=== PATIENT | male | born 1965 | race Caucasian/White ===

== ENCOUNTER 2016-09-20 15:19 | Emergency (ER) | payer SELFPAY ==
[~2016-09-20] VITALS: Ht 175.3 cm; Wt 80.0 kg
[2016-09-20] MEDS ORDERED: SODIUM CHLORIDE 0.9% 1,000 ML IV ONE (15:29)
[2016-09-20] MEDS ORDERED: ETOMIDATE 2MG/ML 10ML VIAL IV ONE (15:30)
[2016-09-20] MEDS ORDERED: PROPOFOL 10MG/ML 100ML 100 ML IV ONE (15:30)
[2016-09-20] MEDS ORDERED: MANNITOL 12.5G (25%) VIAL 50ML IV ONE (15:45)
[2016-09-20] MEDS ORDERED: HYDRALAZINE 20MG/ML VIAL IV ONE (15:45)
[2016-09-20] MEDS ORDERED: DEXAMETHASONE 10MG/ML 1ML VIAL IV ONE (15:45)
[2016-09-20] MEDS ORDERED: NIMODIPINE 30MG CAPSULE NG ONE (15:45)
[2016-09-20] MEDS ORDERED: PHENYTOIN SODIUM 500 MG in SODIUM CHLORIDE 0.9% 50 ML IV ONE (15:45)
[2016-09-20] MEDS ORDERED: HYDRALAZINE 20MG/ML VIAL ONE (15:51)
[2016-09-20 16:02] LABS: BG BASE EXCESS -1.7 mmol/L (-2.0-2.0); BG CARBOXYHEMOGLOBIN 0.6 % (0.5-1.5); BG DEOXYHEMOGLOBIN 0.3 % (0.0-5.0); BG FRACTION INSPIRED OXYGEN 100; BG METHEMOGLOBIN 0.3 % (0.0-1.5); BG OXYGEN SATURATION 99.7 % (92.0-98.5); BG OXYHEMOGLOBIN 98.8 % (94.0-97.0); BG PCO2 30.3 mmHg (35.0-45.0); BG PH 7.458 (7.350-7.450); BG PO2 293.2 mmHg (75.0-100.0); BG SAMPLE SITE RIGHT BRACHIAL; BG TIDAL VOLUME(mL) 550 mL; BG TOTAL HEMOGLOBIN 15.3 g/dL (12.0-18.0); BG VENT MODE VENT - A/C; BG VENT RATE 20 set
[2016-09-20] MEDS ORDERED: LEVETIRACETAM 500MG PREMIX 100 ML IV ONE (16:15)
[2016-09-20] MEDS ORDERED: NICARDIPINE 40MG/200ML PREMIX 200 ML IV PRN (16:15)
[2016-09-20 16:18] LABS: BASOPHILS % 0.3 % (0.0-2.0); EOSINOPHILS % 0.2 % (0.0-5.0); HEMATOCRIT. 41.5 % (42.0-52.0); HEMOGLOBIN. 14.6 g/dL (14.0-18.0); LYMPHOCYTES % 25.5 % (20.0-50.0); MEAN CORPUSCULAR HEMOGLOBIN 31.8 pg (28.0-32.0); MEAN CORPUSCULAR VOLUME 90.3 fL (80.0-94.0); MONOCYTES % 5.6 % (2.0-8.0); NEUTROPHILS % 68.4 % (40.0-76.0); PLATELET 196 x1000/uL (130-400); RED CELL DISTRIBUTION WIDTH 12.7 % (11.6-14.6)
[2016-09-20 16:25] LABS: CHLORIDE 107 mEq/L (98-107)
[2016-09-20 16:30] LABS: CARBON DIOXIDE 22 mEq/L (21-32); ETHANOL BLOOD < 10 mg/dL; PHENYTOIN 0.7 ug/mL (10-20)
[2016-09-20 16:33] LABS: CREATINE KINASE 212 IU/L (39-308); TROPONIN I < 0.02 ng/mL (0.00-0.04)
[2016-09-20 16:40] LABS: CARBAMAZEPINE < 0.5 ug/mL (4-12); PHENOBARBITAL < 2.1 ug/mL (15.0-40.0); VALPROIC ACID < 3.0 ug/mL (50-100)
[2016-09-20] MEDS ORDERED: NICARDIPINE 40MG/200ML PREMIX 200 ML IV SCH (16:45)
[2016-09-20 17:04] VITALS: BP 151/73
[2016-09-20 18:59] LABS: CLARITY URINE CLEAR (CLEAR); COLOR URINE YELLOW (YELLOW); GLUCOSE URINE TRACE (NEGATIVE); KETONES URINE 1+ (NEGATIVE); LEUKOCYTE ESTERASE URINE NEGATIVE (NEGATIVE); NITRITE URINE NEGATIVE (NEGATIVE); OCCULT BLOOD URINE NEGATIVE (NEGATIVE); PH URINE 6.5 (4.5-8.0); PROTEIN URINE 1+ (NEGATIVE); SPECIFIC GRAVITY URINE 1.017 (1.005-1.030); UROBILINOGEN URINE 0.2 E.U./dL (0.2-1.0)
[2016-09-20 19:09] LABS: *AMPHETAMINES SCREEN URINE NEGATIVE (NEGATIVE); *BARBITURATES SCREEN URINE NEGATIVE (NEGATIVE); *BENZODIAZEPINES SCREEN URINE NEGATIVE (NEGATIVE); *COCAINE SCREEN URINE NEGATIVE (NEGATIVE); CANNABINOID URINE SCREEN NEGATIVE (NEGATIVE); METHADONE URINE SCREEN NEGATIVE (NEGATIVE); OPIATES URINE SCREEN NEGATIVE (NEGATIVE); PHENCYCLIDINE URINE SCREEN NEGATIVE (NEGATIVE)
== END 2016-09-20 17:43 | disposition short-term general hospital (02) ==
LOC: ER 15:26
DX: I60.9 Nontraumatic subarachnoid hemorrhage, unspecified (principal); J96.90 Respiratory failure, unspecified, unspecified whether with hypoxia or hypercapnia
CPT/HCPCS: 31500; 36415; 36600; 51702; 70450; 71010; 80053; 80156; 80165; 80184; 80185; 80305; 81001; 82375; 82550; 82805; 83605; 83880; 84443; 84484; 85025; 94002; 96361; 96365; 96375; 99291; G0482; J0360; J1100; J1165; J1953; J2150; J2704; J3490; Z7610; 99285; J7030

== ENCOUNTER 2016-10-23 16:37 | Inpatient (IN) | payer MEDICARE ==
[~2016-10-23] VITALS: Ht 165.1 cm; Wt 66.7 kg
[~2016-10-23 16:37] MED LIST: IOHEXOL-350 100 ML BOTTLE ONE; SODIUM CHLORIDE 0.9% 10ML VIAL ONE
[2016-10-23] MEDS ORDERED: SODIUM CHLORIDE 0.9% 1,000 ML IV ONE ×2 (18:21→19:34)
[2016-10-23 19:05] LABS: BASOPHILS % 0.5 % (0.0-2.0); EOSINOPHILS % 2.7 % (0.0-5.0); HEMATOCRIT. 38.4 % (42.0-52.0); HEMOGLOBIN. 13.1 g/dL (14.0-18.0); MEAN CORPUSCULAR HEMOGLOBIN 32.2 pg (28.0-32.0); MEAN CORPUSCULAR VOLUME 94.6 fL (80.0-94.0); MEAN PLATELET VOLUME 9.6 fl (7.4-10.4); MONOCYTES % 7.1 % (2.0-8.0); NEUTROPHILS % 75.7 % (40.0-76.0); PLATELET 188 x1000/uL (130-400); RED BLOOD CELL COUNT 4.06 mill/uL (4.7-6.1); RED CELL DISTRIBUTION WIDTH 14.9 % (11.6-14.6)
[2016-10-23 19:13] LABS: CHLORIDE 105 mEq/L (98-107)
[2016-10-23 19:16] LABS: INR 1.1; PARTIAL THROMBOPLASTIN TIME 26.3 sec (23.4-31.0); PROTHROMBIN TIME 11.4 sec (9.4-11.6)
[2016-10-23 19:17] LABS: CARBON DIOXIDE 30 mEq/L (21-32)
[2016-10-23 19:25] LABS: TROPONIN I < 0.02 ng/mL (0.00-0.04)
[2016-10-24] MEDS ORDERED: LEVETIRACETAM 500MG PREMIX 100 ML IV ONE (01:00)
[2016-10-24] MEDS ORDERED: IPRATROPIUM/ALBUTEROL 0.5-3(2.5)MG/3ML NEB HHN SCH (16:30)
[2016-10-24] MEDS ORDERED: ACETAMINOPHEN 650MG SUPP ONE (18:24)
[2016-10-24] MEDS ORDERED: ACETAMINOPHEN 650MG SUPP PR NR (18:26)
[2016-10-24] MEDS ORDERED: PIPERACILLIN/TAZ 3.375G PREMIX 50 ML IV NR (18:26)
[2016-10-24] MEDS ORDERED: LEVETIRACETAM 500MG PREMIX 100 ML IV SCH (21:32)
[2016-10-24 22:37] VITALS: BP 113/75
[2016-10-24] MEDS ORDERED: DEXTROSE 50% WATER 50ML SYRINGE IV PRN (23:45)
[2016-10-25] VITALS (7 sets, daily range): BP systolic 111–127; BP diastolic 72–87
[2016-10-25] MEDS ORDERED: MORPHINE SULFATE 2 MG/ML CPJ (NOT FOR IM USE) IV PRN (01:00)
[2016-10-25] MEDS ORDERED: LORAZEPAM 2MG/ML CPJ IV PRN (01:00)
[2016-10-25] MEDS ORDERED: IPRATROPIUM/ALBUTEROL 0.5-3(2.5)MG/3ML NEB HHN PRN (01:15)
[2016-10-25] MEDS: IPRATROPIUM/ALBUTEROL 0.5-3(2.5)MG/3ML NEB HHN SCH ×4 (04:43→20:58)
[2016-10-25] MEDS: BLOOD SUGAR DIAGNOSTIC STRIP TEST SCH ×3 (07:10→12:30)
[2016-10-25] MEDS: INSULIN LISPRO 100 UNITS/ML SUBCUT SCH ×3 (07:40→12:31)
[2016-10-25] MEDS ORDERED: SENNOSIDES/DOCUSATE SOD 8.6/50MG TABLET GT PRN (11:45)
[2016-10-25] MEDS ORDERED: MORPHINE SULFATE 10MG/5ML ORAL SOLN UDC PO PRN ×2 (11:45→16:00)
[2016-10-25] MEDS ORDERED: LORAZEPAM 1MG TABLET PO PRN (11:45)
[2016-10-25] MEDS ORDERED: DOCUSATE SODIUM 100MG CAPSULE GT SCH (17:00)
[2016-10-26] VITALS: BP 119/81
[2016-10-26] MEDS: IPRATROPIUM/ALBUTEROL 0.5-3(2.5)MG/3ML NEB HHN SCH ×7 (00:46→23:55)
[2016-10-26 04:00] VITALS: BP 115/80
[2016-10-26 08:00] VITALS: BP 116/73
[2016-10-26] MEDS: BLOOD SUGAR DIAGNOSTIC STRIP TEST SCH ×4 (08:00→21:00)
[2016-10-26] MEDS: INSULIN LISPRO 100 UNITS/ML SUBCUT SCH ×4 (08:00→21:00)
[2016-10-26] MEDS: DOCUSATE SODIUM SUGAR FREE 100MG/10ML UDC GT SCH ×2 (08:52→17:00)
[2016-10-26] MEDS ORDERED: ACETAMINOPHEN 650MG SUPP PR PRN (10:45)
[2016-10-26 12:00] VITALS: BP 111/76
[2016-10-26 16:00] VITALS: BP 115/76
[2016-10-26 20:00] VITALS: BP 104/71
[2016-10-27] VITALS: BP 101/73
[2016-10-27] MEDS: IPRATROPIUM/ALBUTEROL 0.5-3(2.5)MG/3ML NEB HHN SCH ×6 (03:59→23:58)
[2016-10-27 04:00] VITALS: BP 108/72
[2016-10-27] MEDS: INSULIN LISPRO 100 UNITS/ML SUBCUT SCH ×4 (07:01→21:00)
[2016-10-27] MEDS: BLOOD SUGAR DIAGNOSTIC STRIP TEST SCH ×4 (07:01→21:00)
[2016-10-27] MEDS ORDERED: MORPHINE SULFATE 4 MG/ML CPJ (NOT FOR IM USE) IV PRN (07:45)
[2016-10-27 08:00] VITALS: BP 113/75
[2016-10-27] MEDS: DOCUSATE SODIUM SUGAR FREE 100MG/10ML UDC GT SCH ×2 (09:00→17:00)
[2016-10-27 12:00] VITALS: BP 106/69
[2016-10-27 16:00] VITALS: BP 110/71
[2016-10-28] VITALS (7 sets, daily range): BP systolic 106–118; BP diastolic 65–76
[2016-10-28] MEDS: IPRATROPIUM/ALBUTEROL 0.5-3(2.5)MG/3ML NEB HHN SCH ×4 (04:24→20:39)
[2016-10-28] MEDS: INSULIN LISPRO 100 UNITS/ML SUBCUT SCH ×3 (06:08→12:27)
[2016-10-28] MEDS: BLOOD SUGAR DIAGNOSTIC STRIP TEST SCH ×3 (06:08→12:27)
[2016-10-28] MEDS: DOCUSATE SODIUM SUGAR FREE 100MG/10ML UDC GT SCH (08:46)
== END 2016-10-28 23:52 | disposition home or self-care (01) | DRG 52 ==
LOC: ER 16:55 → 8WST 10-24 16:03 → EDBEDREQ 10-24 16:04 → ENRESERV 10-24 19:45
PROVIDERS: ADMIT Internal Medicine; ATTEND Internal Medicine
DX: G93.49 Other encephalopathy (principal); Z99.11 Dependence on respirator [ventilator] status; J96.10 Chronic respiratory failure, unspecified whether with hypoxia or hypercapnia; Z66 Do not resuscitate; Z51.5 Encounter for palliative care; E11.9 Type 2 diabetes mellitus without complications; E86.0 Dehydration; Z86.69 Personal history of other diseases of the nervous system and sense organs
CPT/HCPCS: 36415; 70496; 71010; 80053; 82962; 83690; 83880; 84484; 85025; 85610; 85730; 87040; 93005; 94640; 96361; 96365; 99291; A4216; A6261; J1953; J7030; J7620; Q9967; A4315

== ENCOUNTER 2019-10-16 07:44 | Inpatient (IN) | payer MEDICARE, MEDICAID ==
[~2019-10-16] VITALS: Ht 165.1 cm; Wt 58.6 kg
[2019-10-16] MEDS ORDERED: SODIUM CHLORIDE 0.9% 1,000 ML IV ONE (07:59)
[2019-10-16] MEDS ORDERED: LORAZEPAM 2MG/ML CPJ IV ONE (08:00)
[2019-10-16 08:38] LABS: CHLORIDE 102 mEq/L (98-107); HEMATOCRIT. 39.1 % (42.0-52.0); HEMOGLOBIN. 13.3 g/dL (14.0-18.0); MEAN CORPUSCULAR HEMOGLOBIN 33.8 pg (28.0-32.0); MEAN CORPUSCULAR VOLUME 99.3 fL (80.0-94.0); MEAN PLATELET VOLUME 7.9 fl (7.4-10.4); PLATELET 180 x1000/uL (130-400); RED BLOOD CELL COUNT 3.94 mill/uL (4.7-6.1)
[2019-10-16 08:40] LABS: INR 1.1; PROTHROMBIN TIME 11.6 sec (9.6-11.0)
[2019-10-16 08:42] LABS: ETHANOL BLOOD < 10 mg/dL
[2019-10-16 09:52] LABS: PLATELET ESTIMATE NORMAL
[2019-10-16] MEDS ORDERED: PIPERACILLIN/TAZ 3.375G PREMIX 50 ML IV ONE (10:00)
[2019-10-16] MEDS ORDERED: VANCOMYCIN 1 G PREMIX 200 ML IV ONE (10:00)
[2019-10-16] MEDS ORDERED: SODIUM CHLORIDE 0.9% 1000ML BAG (SEPSIS BOLUS) IV ONE (10:00)
[2019-10-16 10:23] LABS: CLARITY URINE CLEAR (CLEAR); COLOR URINE YELLOW (YELLOW); KETONES URINE NEGATIVE (NEGATIVE); LEUKOCYTE ESTERASE URINE TRACE (NEGATIVE); NITRITE URINE POSITIVE (NEGATIVE); OCCULT BLOOD URINE 1+ (NEGATIVE); PH URINE 7.5 (4.5-8.0); PROTEIN URINE 1+ (NEGATIVE); SPECIFIC GRAVITY URINE 1.011 (1.005-1.030); UROBILINOGEN URINE 0.2 E.U./dL (0.2-1.0)
[2019-10-16 10:34] LABS: *AMPHETAMINES SCREEN URINE NEGATIVE (NEGATIVE); *BARBITURATES SCREEN URINE NEGATIVE (NEGATIVE); CANNABINOID URINE SCREEN NEGATIVE (NEGATIVE)
[2019-10-16 10:35] LABS: *BENZODIAZEPINES SCREEN URINE PRESUMTIVE POSITIVE (NEGATIVE); *COCAINE SCREEN URINE NEGATIVE (NEGATIVE); METHADONE URINE SCREEN NEGATIVE (NEGATIVE); OPIATES URINE SCREEN NEGATIVE (NEGATIVE); PHENCYCLIDINE URINE SCREEN NEGATIVE (NEGATIVE)
[2019-10-16] MEDS ORDERED: ONDANSETRON HCL 4MG/2ML INJ IV PRN (12:00)
[2019-10-16] MEDS ORDERED: ACETAMINOPHEN 325MG TABLET PO PRN (12:00)
[2019-10-16] MEDS ORDERED: LORAZEPAM 2MG/ML CPJ IV PRN (12:00)
[2019-10-16] MEDS: IPRATROPIUM/ALBUTEROL 0.5-3(2.5)MG/3ML NEB HHN SCH ×2 (13:03→20:44)
[2019-10-16 13:34] VITALS: BP 125/78
[2019-10-16 13:56] VITALS: BP 125/78
[2019-10-16] MEDS ORDERED: LEVE1000 MT (14:22)
[2019-10-16] MEDS ORDERED: [UNRECOGNIZED DRUG - OTHER] (14:22)
[2019-10-16 16:00] VITALS: BP 123/76
[2019-10-16] MEDS ORDERED: PIPERACILLIN/TAZ 3.375G PREMIX 50 ML IV SCH (16:00)
[2019-10-16 16:10] LABS: BG BASE EXCESS 2.8 mmol/L (-2.0-2.0); BG CARBOXYHEMOGLOBIN 0.5 % (0.5-1.5); BG HCO3 ACT 27.4 mmol/L (22.0-26.0); BG METHEMOGLOBIN 0.1 % (0.0-1.5); BG OXYHEMOGLOBIN 94.4 % (94.0-97.0); BG PCO2 41.9 mmHg (35.0-45.0); BG PH 7.433 (7.350-7.450); BG PO2 77.2 mmHg (75.0-100.0); BG SAMPLE SITE RIGHT RADIAL; BG TOTAL HEMOGLOBIN 16.2 g/dL (12.0-18.0); BG VENT MODE MASK - TRACH
[2019-10-16 17:34] VITALS: BP 133/68
[2019-10-16] MEDS: ENOXAPARIN 40MG/0.4ML SYR SUBCUT SCH (18:23)
[2019-10-16] MEDS: PIPERACILLIN/TAZOBACTAM 3.375 G in DEXTROSE 5% WATER 50 ML IV SCH ×2 (18:24→22:29)
[2019-10-16] MEDS: DEXT 5%/0.45% NACL 500ML 1,000 ML IV SCH (18:29)
[2019-10-16 20:00] VITALS: BP 131/76
[2019-10-16] MEDS: LEVETIRACETAM 500MG TABLET PO SCH (20:43)
[2019-10-16] MEDS: LAMOTRIGINE 25MG TABLET PO SCH (20:43)
[2019-10-16 22:00] VITALS: BP 123/87
[2019-10-17] VITALS (12 sets, daily range): BP systolic 115–149; BP diastolic 68–88
[2019-10-17] MEDS: IPRATROPIUM/ALBUTEROL 0.5-3(2.5)MG/3ML NEB HHN SCH ×4 (02:12→20:37)
[2019-10-17] MEDS: PIPERACILLIN/TAZOBACTAM 3.375 G in DEXTROSE 5% WATER 50 ML IV SCH ×4 (03:21→23:51)
[2019-10-17] MEDS: DEXT 5%/0.45% NACL 500ML 1,000 ML IV SCH ×2 (05:08→14:30)
[2019-10-17 06:15] LABS: BASOPHILS % 0.4 % (0.0-2.0); EOSINOPHILS % 1.3 % (0.0-5.0); HEMATOCRIT. 37.6 % (42.0-52.0); HEMOGLOBIN. 12.9 g/dL (14.0-18.0); LYMPHOCYTES % 19.6 % (20.0-50.0); MEAN CORPUSCULAR HEMOGLOBIN 34.4 pg (28.0-32.0); MEAN CORPUSCULAR VOLUME 100.1 fL (80.0-94.0); MONOCYTES % 10.7 % (2.0-8.0); PLATELET 158 x1000/uL (130-400); RED BLOOD CELL COUNT 3.76 mill/uL (4.7-6.1); RED CELL DISTRIBUTION WIDTH 13.4 % (11.6-14.6)
[2019-10-17 07:13] LABS: CHLORIDE 108 mEq/L (98-107)
[2019-10-17] MEDS ORDERED: POTASSIUM CHLORIDE 20MEQ/PACKET PO SCH (08:30)
[2019-10-17] MEDS: LEVETIRACETAM 500MG TABLET PO SCH ×2 (09:11→20:34)
[2019-10-17] MEDS: LAMOTRIGINE 25MG TABLET PO SCH (09:11)
[2019-10-17] MEDS: ENOXAPARIN 40MG/0.4ML SYR SUBCUT SCH (09:12)
[2019-10-17] MEDS: VIMPAT 10MG/ML GT SCH (20:33)
[2019-10-18] VITALS (12 sets, daily range): BP systolic 102–152; BP diastolic 50–93
[2019-10-18] MEDS: IPRATROPIUM/ALBUTEROL 0.5-3(2.5)MG/3ML NEB HHN SCH ×4 (02:21→21:20)
[2019-10-18] MEDS: PIPERACILLIN/TAZOBACTAM 3.375 G in DEXTROSE 5% WATER 50 ML IV SCH ×4 (04:28→22:31)
[2019-10-18 06:00] LABS: BASOPHILS % 0.3 % (0.0-2.0); EOSINOPHILS % 0.9 % (0.0-5.0); HEMATOCRIT. 40.7 % (42.0-52.0); HEMOGLOBIN. 14.3 g/dL (14.0-18.0); LYMPHOCYTES % 9.3 % (20.0-50.0); MEAN CORPUSCULAR HEMOGLOBIN 34.2 pg (28.0-32.0); MEAN CORPUSCULAR VOLUME 97.3 fL (80.0-94.0); MEAN PLATELET VOLUME 7.7 fl (7.4-10.4); MONOCYTES % 6.5 % (2.0-8.0); PLATELET 189 x1000/uL (130-400); RED BLOOD CELL COUNT 4.18 mill/uL (4.7-6.1); RED CELL DISTRIBUTION WIDTH 13.3 % (11.6-14.6)
[2019-10-18 06:15] LABS: CHLORIDE 103 mEq/L (98-107)
[2019-10-18] MEDS: LAMOTRIGINE 25MG TABLET PO SCH (08:33)
[2019-10-18] MEDS: ENOXAPARIN 40MG/0.4ML SYR SUBCUT SCH (08:34)
[2019-10-18] MEDS: LEVETIRACETAM 500MG TABLET PO SCH ×2 (08:34→21:00)
[2019-10-18] MEDS: VIMPAT 10MG/ML GT SCH ×2 (08:34→16:14)
[2019-10-18] MEDS ORDERED: POTASSIUM CHLORIDE 20MEQ/PACKET GT SCH (10:00)
[2019-10-18 12:36] LABS: BG CARBOXYHEMOGLOBIN 0.1 % (0.5-1.5); BG DEOXYHEMOGLOBIN 4.4 % (0.0-5.0); BG HCO3 ACT 26.7 mmol/L (22.0-26.0); BG METHEMOGLOBIN 0.2 % (0.0-1.5); BG OXYGEN SATURATION 95.6 % (92.0-98.5); BG OXYHEMOGLOBIN 95.3 % (94.0-97.0); BG PCO2 37.8 mmHg (35.0-45.0); BG PH 7.467 (7.350-7.450); BG PO2 80.5 mmHg (75.0-100.0); BG SAMPLE SITE RIGHT RADIAL; BG TOTAL HEMOGLOBIN 13.5 g/dL (12.0-18.0); BG VENT MODE MASK - TRACH
[2019-10-19] VITALS (12 sets, daily range): BP systolic 102–140; BP diastolic 63–95
[2019-10-19] MEDS: IPRATROPIUM/ALBUTEROL 0.5-3(2.5)MG/3ML NEB HHN SCH ×4 (02:31→20:21)
[2019-10-19] MEDS: PIPERACILLIN/TAZOBACTAM 3.375 G in DEXTROSE 5% WATER 50 ML IV SCH ×4 (04:18→21:16)
[2019-10-19] MEDS: LAMOTRIGINE 25MG TABLET PO SCH (09:22)
[2019-10-19] MEDS: LEVETIRACETAM 500MG TABLET PO SCH ×2 (09:22→21:15)
[2019-10-19] MEDS: ENOXAPARIN 40MG/0.4ML SYR SUBCUT SCH (09:23)
[2019-10-19] MEDS: VIMPAT 10MG/ML GT SCH ×2 (09:27→16:04)
[2019-10-19] MEDS ORDERED: LEVO750T21 MT (11:05)
[2019-10-19] MEDS ORDERED: AMOX-424 MT (12:05)
[2019-10-19] MEDS: POTASSIUM CHLORIDE 20MEQ/PACKET GT SCH (12:24)
[2019-10-19] MEDS: ACETYLCYSTEINE 200MG/ML 20% VIAL 4ML INH SCH (15:22)
[2019-10-20] VITALS (8 sets, daily range): BP systolic 115–142; BP diastolic 77–89
[2019-10-20] MEDS: ACETYLCYSTEINE 200MG/ML 20% VIAL 4ML INH SCH ×3 (00:24→12:34)
[2019-10-20] MEDS: IPRATROPIUM/ALBUTEROL 0.5-3(2.5)MG/3ML NEB HHN SCH ×3 (00:25→12:35)
[2019-10-20] MEDS: PIPERACILLIN/TAZOBACTAM 3.375 G in DEXTROSE 5% WATER 50 ML IV SCH ×2 (04:20→10:52)
[2019-10-20 07:21] LABS: BASOPHILS % 0.6 % (0.0-2.0); HEMOGLOBIN. 13.3 g/dL (14.0-18.0); LYMPHOCYTES % 13.7 % (20.0-50.0); MEAN CORPUSCULAR HEMOGLOBIN 34.3 pg (28.0-32.0); MEAN CORPUSCULAR VOLUME 97.9 fL (80.0-94.0); MEAN PLATELET VOLUME 7.9 fl (7.4-10.4); MONOCYTES % 9.7 % (2.0-8.0); PLATELET 171 x1000/uL (130-400); RED BLOOD CELL COUNT 3.88 mill/uL (4.7-6.1); RED CELL DISTRIBUTION WIDTH 13.3 % (11.6-14.6)
[2019-10-20 07:38] LABS: CHLORIDE 105 mEq/L (98-107)
[2019-10-20] MEDS: ENOXAPARIN 40MG/0.4ML SYR SUBCUT SCH (08:40)
[2019-10-20] MEDS: LEVETIRACETAM 500MG TABLET PO SCH (08:40)
[2019-10-20] MEDS: POTASSIUM CHLORIDE 20MEQ/PACKET GT SCH (08:40)
[2019-10-20] MEDS: LAMOTRIGINE 25MG TABLET PO SCH (08:43)
[2019-10-20] MEDS: VIMPAT 10MG/ML GT SCH (08:45)
== END 2019-10-20 15:30 | disposition home or self-care (01) | DRG 871 ==
LOC: ER 07:57 → EDBEDREQTM 10:06 → 5EST 11:14 → EDBEDREQ 11:19 → EDBEDREQTM 11:19 → ENRESERV 12:03
PROVIDERS: ADMIT Internal Medicine; ATTEND Internal Medicine
PROC: 4A00X4Z Measurement of Central Nervous Electrical Activity, External Approach (ICD-10-PCS; principal; 2019-10-19)
DX: A41.9 Sepsis, unspecified organism (principal); J69.0 Pneumonitis due to inhalation of food and vomit; J96.20 Acute and chronic respiratory failure, unspecified whether with hypoxia or hypercapnia; E44.1 Mild protein-calorie malnutrition; G91.9 Hydrocephalus, unspecified; N39.0 Urinary tract infection, site not specified; Q04.6 Congenital cerebral cysts; G40.909 Epilepsy, unspecified, not intractable, without status epilepticus; R47.02 Dysphasia; I72.8 Aneurysm of other specified arteries; Z74.01 Bed confinement status; Z86.73 Personal history of transient ischemic attack (TIA), and cerebral infarction without residual deficits; Z88.1 Allergy status to other antibiotic agents; Z93.0 Tracheostomy status; Z93.1 Gastrostomy status; Z98.2 Presence of cerebrospinal fluid drainage device; Z88.8 Allergy status to other drugs, medicaments and biological substances; Z68.21 Body mass index [BMI] 21.0-21.9, adult; B96.1 Klebsiella pneumoniae [K. pneumoniae] as the cause of diseases classified elsewhere
CPT/HCPCS: 36415; 36600; 71045; 80048; 80053; 80305; 80320; 81003; 82375; 82805; 82962; 83605; 84145; 84484; 85025; 87077; 87186; 93005; 93306; 94640; 95816; 99291; J1650; J2060; J2543; J3370; J7030; J7060; J7608; G0480